=== PATIENT | male | born 1995 | race Caucasian/White ===

== ENCOUNTER → 2019-09-25 | Outpatient (CLI) | payer BC, SELFPAY ==
[2019-09-25 09:13] VITALS: BMI 24.3
[2019-09-25 13:29] LABS: Estradiol 22.5 pg/mL; hCG Titer Quant., Serum < 1 mIU/mL (0-1 male)
[2019-09-28 08:07] LABS: Testosterone, Free 4.66 ng/dL (5.00-21.00)
[2019-09-28 19:24] LABS: Testosterone, % Free 2.24 % (1.50-4.20); Testosterone, Total 208 ng/dL (264-916)
== END | disposition home or self-care (01) ==
LOC: LABSPEC 12:35
PROVIDERS: Referring Provider Internal Medicine Endocrinology, Diabetes & Metabolism; Visit Provider Internal Medicine Endocrinology, Diabetes & Metabolism
DX: N62 Hypertrophy of breast (principal)
CPT/HCPCS: 82670; 84402; 84403; 84702